=== PATIENT | female | born 1985 ===

== ENCOUNTER 2017-12-10 20:08 | Emergency (ER) | payer MEDICARE, MEDICAID ==
[2017-12-10 20:08] VITALS: BMI 37.9
--- NOTE | 2017-12-10 22:20 | ED PDOC ---
Syncope/Near Syncope/Dizziness Time Seen by Provider: 12/10/17 21:00 Chief Complaint (Nursing): Headache Chief Complaint (Provider): dizziness History Per: Patient History/Exam Limitations: no limitations Onset/Duration Of Symptoms: Days (x2) Current Symptoms Are (Timing): Still Present Additional Complaint(s): 32 year old, female with medical history of hypertension, end-stage renal disease and Lupus disease, presents to the emergency department with a complaint of dizziness associated with 3 episodes of nonbloody, nonbilious nausea and generalized weakness ongoing for 2 days. Patient reported dialysis treatments on Saturday, Saturday and Fridays. PMD: Saray Du MD Past Medical History Reviewed: Historical Data, Nursing Documentation, Vital Signs Vital Signs: Last Vital Signs Temp 98.6 F 12/10/17 20:32 Pulse 78 12/10/17 20:32 Resp 16 12/10/17 20:32 BP 163/108 H 12/10/17 20:32 Pulse Ox 100 12/10/17 20:32 - Medical History PMH: HTN (on home meds), Pulmonary Embolism (per medical records), Chronic Kidney Disease (secondary to SLE, closely follow by Dr. Robbins), TIA Denies: Alzheimer's Disease, Anemia, Anxiety, Arthritis, Asthma, Atrial Fibrillation, Bipolar Disorder, Bronchitis, Cardia Arrhythmia, CHF, COPD, Crohn' s Disease, Dementia, Depression, Diverticulitis, Emphysema, Fractures, Gastritis , Gall Bladder Disease, HIV, Hypercholesterolemia, Hyperthyroidism, Hypothyroidism, Kidney Stones, Migraine, Mitral Valve Prolapse, Osteoporosis, Pancreatitis, Paranoia, Peripheral Edema, Pneumonia, Post Traumatic Stress Disorder, Rheumatoid Arthritis, Schizophrenia, Sickle Cell Disease, Sexually Transmitted Disease, Sleep Apnea - Surgical History Surgical History: CABG, Carotid Endarterectomy, Coronary Stent, Tonsillectomy Denies: Appendectomy, Cholecystectomy, Pacemaker - Family History Family History: States: Unknown Family Hx, Hypertension - Social History Current smoker - smoking cessation education provided: No Alcohol: None Drugs: Denies - Home Medications Home Medications: Ambulatory Orders Medication Instructions Recorded Metoprolol Succinate 50 mg PO DAILY 06/16/14 Zolpidem Tartrate 5 mg PO HS PRN 06/16/14 predniSONE [predniSONE Tab] 5 mg PO DAILY 06/16/14 Hydroxychloroquine Sulfate 200 mg PO DAILY 10/27/14 [Plaquenil] amLODIPine [Norvasc] 5 mg PO DAILY #30 tab 11/02/14 Omeprazole [Prilosec] 20 mg PO DAILY PRN 07/19/15 Dicyclomine [Bentyl] 20 mg PO Q12 PRN #20 tab 07/19/16 Ondansetron ODT [Zofran ODT] 4 mg PO Q6 PRN #16 odt 07/19/16 Ondansetron ODT [Zofran ODT] 4 mg PO Q8 PRN #12 odt 11/08/16 oxyCODONE/Acetaminophen [Percocet 1 ea PO Q6 PRN #15 tab 11/08/16 5/325 mg Tab] Ondansetron ODT [Zofran ODT] 4 mg PO Q6 PRN #16 odt 12/11/17 - Allergies Allergies/Adverse Reactions: Allergies Allergy/AdvReac Type Severity Reaction Status Date / Time vancomycin Allergy RASH Verified 12/10/17 20:32 Review of Systems ROS Statement: Except As Marked, All Systems Reviewed And Found Negative Constitutional: Positive for: Weakness Gastrointestinal: Positive for: Nausea (x3 NBNB) Neurological: Positive for: Dizziness Physical Exam - Reviewed Nursing Documentation Reviewed: Yes Vital Signs Reviewed: Yes - Physical Exam Appears: Positive for: Non-toxic, No Acute Distress Head Exam: Positive for: ATRAUMATIC, NORMAL INSPECTION, NORMOCEPHALIC Skin: Positive for: Pallor. Negative for: Normal Color Eye Exam: Positive for: Normal appearance ENT: Positive for: Normal ENT Inspection Neck: Positive for: Normal Cardiovascular/Chest: Positive for: Regular Rate, Rhythm. Negative for: Murmur Respiratory: Positive for: Normal Breath Sounds. Negative for: Decreased Breath Sounds, Wheezing, Respiratory Distress Gastrointestinal/Abdominal: Positive for: Normal Exam, Soft, Other (obese appearance). Negative for: Tenderness Extremity: Positive for: Normal ROM (upper/lower), Other (left arm AV graft in place) Neurologic/Psych: Positive for: Alert, Oriented - Laboratory Results Result Diagrams: 12/10/17 22:10 12/10/17 22:10 - ECG O2 Sat by Pulse Oximetry: 100 (RA) Pulse Ox Interpretation: Normal Medical Decision Making Medical Decision Making: Initial Impression: Nausea, vomiting and weakness in setting of recent dialysis and Lupus Initial Plan: * ABO/RH type * Type and screen * EKG * CMP * Troponin I * CBC * PTT * PT * Zofran inj 4mg IV * Ct Head FINDINGS: Brain: Unremarkable. No hemorrhage. No significant white matter disease. No edema. Ventricles: Unremarkable. No ventriculomegaly. Bones/joints: Unremarkable. No acute fracture. Soft tissues: Unremarkable. Sinuses: Unremarkable as visualized. No acute sinusitis. Mastoid air cells: Unremarkable as visualized. No mastoid effusion. IMPRESSION: No evidence of an acute intracranial abnormality. Patient is discharged home. She will follow up with PMD and attend AM dialysis as scheduled. Diagnosis is headache and dizziness. Scribe Attestation: Documented by Dejah Mendoza, acting as a scribe for Gus Parmar MD. Provider Scribe Attestation: All medical record entries made by the Scribe were at my direction and personally dictated by me. I have reviewed the chart and agree that the record accurately reflects my personal performance of the history, physical exam, medical decision making, and the department course for this patient. I have also personally directed, reviewed, and agree with the discharge instructions and disposition. Disposition - Clinical Impression Clinical Impression: Headache - Patient ED Disposition Is Patient to be Admitted: No - Disposition Disposition: Routine/Home Disposition Time: 01:10 Condition: STABLE Prescriptions: Ondansetron ODT [Zofran ODT] 4 mg PO Q6 PRN #16 odt PRN Reason: Nausea/Vomiting Instructions: Headache, Adult Forms: [facility] (Northern Irish) Print Language: LATVIAN
[2017-12-10 23:01] LABS: BASO % 0.8 % (0.0-2.0); EOS # 0.1 K/uL (0.0-0.7); EOS % 1.3 % (0.0-4.0); HEMOGLOBIN 11.3 g/dL (12.0-16.0); LYMPH # 1.1 K/uL (1.0-4.3); LYMPH % 20.6 % (20.0-40.0); MEAN CELL VOLUME 99.9 fl (81.0-99.0); MEAN CORPUSCULAR HEMOGLOBIN 32.8 pg (27.0-31.0); MEAN CORPUSCULAR HGB CONC 32.9 g/dL (33.0-37.0); MEAN PLATELET VOLUME 11.2 fl (7.2-11.7); MONO # 0.3 K/uL (0.0-0.8); MONO % 6.8 % (0.0-10.0); NEUT # 3.6 K/uL (1.8-7.0); NEUT % 70.5 % (50.0-75.0); RBC 3.43 Mil/uL (3.80-5.20); RED CELL DISTRIBUTION WIDTH 13.5 % (11.5-14.5); WHITE BLOOD COUNT 5.1 K/uL (4.8-10.8)
[2017-12-10 23:09] LABS: ALB/GLOB RATIO 1.2 (1.0-2.1); ALBUMIN 4.2 g/dL (3.5-5.0); ALT/SGPT 28 U/L (9-52); AST/SGOT 19 U/L (14-36); BLOOD UREA NITROGEN 33 mg/dl (7-17); CALCIUM 9.7 mg/dL (8.4-10.2); GFR AFRICAN-AMERICAN 9; GFR NON-AFRICAN AMERICAN 8
[2017-12-10 23:15] LABS: PARTIAL THROMBOPLASTIN TIME 24.2 Seconds (25.6-37.1); PROTHROMBIN TIME 10.8 Seconds (9.8-13.1)
--- NOTE | 2017-12-11 01:02 | CT ---
EXAM: CT Head Without Intravenous Contrast CLINICAL HISTORY: 32 years old, female; Pain; Headache TECHNIQUE: Axial computed tomography images of the head/brain without intravenous contrast. All CT scans at this facility use one or more dose reduction techniques, viz.: automated exposure control; ma/kV adjustment per patient size (including targeted exams where dose is matched to indication; i.e. head); or iterative reconstruction technique. Coronal and sagittal reformatted images were created and reviewed. COMPARISON: CT HEAD OR BRAIN W/O CONT 2012-11-09 09:07 FINDINGS: Brain: Unremarkable. No hemorrhage. No significant white matter disease. No edema. Ventricles: Unremarkable. No ventriculomegaly. Bones/joints: Unremarkable. No acute fracture. Soft tissues: Unremarkable. Sinuses: Unremarkable as visualized. No acute sinusitis. Mastoid air cells: Unremarkable as visualized. No mastoid effusion. IMPRESSION: No evidence of an acute intracranial abnormality.
[2017-12-11 02:09] VITALS: RESP 17
[2017-12-11 02:13] VITALS: BP 143/85; PULSE 76; TEMP 98
[2017-12-11 02:16] VITALS: O2SAT 100
--- NOTE | 2017-12-11 11:43 | CARD ---
APPROVED REPORT EKG Measurement Heart [id number] <Conclusion> Normal sinus rhythm Prolonged QT Abnormal ECG
== END 2017-12-11 02:00 | disposition home or self-care (01) ==
LOC: H.ER 20:08
DX: R55 Syncope and collapse (principal); R11.0 Nausea; R51 Headache; R42 Dizziness and giddiness; I12.9 Hypertensive chronic kidney disease with stage 1 through stage 4 chronic kidney disease, or unspecified chronic kidney disease; M32.9 Systemic lupus erythematosus, unspecified; N18.9 Chronic kidney disease, unspecified; Z86.711 Personal history of pulmonary embolism; Z86.73 Personal history of transient ischemic attack (TIA), and cerebral infarction without residual deficits; Z95.5 Presence of coronary angioplasty implant and graft; Z95.1 Presence of aortocoronary bypass graft; Z99.2 Dependence on renal dialysis
CPT/HCPCS: 70450; 80053; 84484; 84703; 85025; 85610; 85730; 86850; 86900; 93005; 96374; 99285; J2405

== ENCOUNTER 2018-05-11 02:16 | Emergency (ER) | payer MEDICARE, MEDICAID ==
[2018-05-11 03:40] VITALS: BMI 34.0
--- NOTE | 2018-05-11 03:51 | ED PDOC ---
Upper Extremity Pain/Injury Chief Complaint (Provider): Right upper back/rib pain History Per: Patient History/Exam Limitations: no limitations Onset/Duration Of Symptoms: Days Current Symptoms Are (Timing): Still Present Pain Scale Rating Of: 8 Additional Complaint(s): 32 y/o F with h/o SLE, ESRD on Dialysis 3 times per week ( MWF), HTN presents to ED complaining of right upper back/ribs pain for 3 days. States her pain started 3 days ago in her upper back, moving down to her shoulder, and right rib cage, sharp quality, gradually increasing in intensity, not getting relief with Ibuprofen 600 mg taken 3 hours ago, worse with deep inspiration, and sometimes feels is difficult to take a deep breath when lying down. Reports she has had cold like symptoms including nasal congestion, dry cough 1 week ago, however her symptoms are getting better, but she is still coughing. Denies fever , sputum production, cp, SOB, abd pain, diarrheas. Denies h/o trauma or falls in the past or recently. PMD:Saray Du <Alethea Diaz - Last Filed: 05/11/18 06:01> <Niesha Quiñones - Last Filed: 05/11/18 19:14> Time Seen by Provider: 05/11/18 03:05 Supervising Attending Note - Supervising Attending Note The Documented history was done by the: [employer], Attending Physician The documented physical exam was done by the: [employer], Attending Physician The documented procedures were done by the: [employer], Attending Physician - Attestation: I have personally seen and examined this patient.: Yes I have fully participated in the care of the patient.: Yes I have reviewed all pertinent clinical information: Yes <Niesha Quiñones - Last Filed: 05/11/18 19:14> Past Medical History - Medical History PMH: HTN (on home meds), Pulmonary Embolism (per medical records), End Stage Renal Disease Denies: Alzheimer's Disease, Anemia, Anxiety, Arthritis, Asthma, Atrial Fibrillation, Bipolar Disorder, Bronchitis, Cardia Arrhythmia, CHF, COPD, Crohn' s Disease, Dementia, Depression, Diverticulitis, Emphysema, Fractures, Gastritis , Gall Bladder Disease, HIV, Hypercholesterolemia, Hyperthyroidism, Hypothyroidism, Kidney Stones, Migraine, Mitral Valve Prolapse, Osteoporosis, Pancreatitis, Paranoia, Peripheral Edema, Pneumonia, Post Traumatic Stress Disorder, Rheumatoid Arthritis, Schizophrenia, Sickle Cell Disease, Sexually Transmitted Disease, Sleep Apnea Other PMH: SLE, On dialysis MWF - Surgical History Surgical History: Tonsillectomy Denies: Appendectomy, Cholecystectomy, Pacemaker - Family History Family History: States: Unknown Family Hx, Hypertension <Alethea Diaz - Last Filed: 05/11/18 06:01> Vital Signs: Last Vital Signs Temp 98.5 F 05/11/18 06:12 Pulse 76 05/11/18 06:12 Resp 16 05/11/18 06:12 BP 139/78 05/11/18 06:12 Pulse Ox 99 05/11/18 06:12 <Niesha Quiñones - Last Filed: 05/11/18 19:14> - Home Medications Home Medications: Ambulatory Orders Medication Instructions Recorded Metoprolol Succinate 50 mg PO DAILY 06/16/14 Zolpidem Tartrate 5 mg PO HS PRN 06/16/14 predniSONE [predniSONE Tab] 5 mg PO DAILY 06/16/14 Hydroxychloroquine Sulfate 200 mg PO DAILY 10/27/14 [Plaquenil] amLODIPine [Norvasc] 5 mg PO DAILY #30 tab 11/02/14 Omeprazole [Prilosec] 20 mg PO DAILY PRN 07/19/15 Dicyclomine [Bentyl] 20 mg PO Q12 PRN #20 tab 07/19/16 Ondansetron ODT [Zofran ODT] 4 mg PO Q6 PRN #16 odt 07/19/16 Ondansetron ODT [Zofran ODT] 4 mg PO Q8 PRN #12 odt 11/08/16 oxyCODONE/Acetaminophen [Percocet 1 ea PO Q6 PRN #15 tab 11/08/16 5/325 mg Tab] Ondansetron ODT [Zofran ODT] 4 mg PO Q6 PRN #16 odt 12/11/17 Cyclobenzaprine [Cyclobenzaprine 10 mg PO TID PRN #15 tab 05/11/18 HCl] Naproxen 500 mg PO BID #20 tab 05/11/18 - Allergies Allergies/Adverse Reactions: Allergies Allergy/AdvReac Type Severity Reaction Status Date / Time vancomycin Allergy RASH Verified 12/10/17 20:32 Review of Systems ROS Statement: Except As Marked, All Systems Reviewed And Found Negative (as per HPI) <Alethea Diaz - Last Filed: 05/11/18 06:01> Physical Exam - Reviewed Nursing Documentation Reviewed: Yes Vital Signs Reviewed: Yes - Physical Exam Appears: Positive for: Non-toxic, No Acute Distress Head Exam: Positive for: ATRAUMATIC, NORMOCEPHALIC Skin: Positive for: Normal Color, Warm, Dry Eye Exam: Positive for: Normal appearance ENT: Positive for: Normal ENT Inspection Neck: Positive for: Supple Cardiovascular/Chest: Positive for: Regular Rate, Rhythm. Negative for: Chest Non Tender, Edema, Friction Rub Respiratory: Positive for: Normal Breath Sounds, Rhonchi. Negative for: Decreased Breath Sounds, Accessory Muscle Use, Crackles, Stridor, Wheezing, Respiratory Distress Gastrointestinal/Abdominal: Positive for: Soft. Negative for: Tenderness, Distended, Guarding, Rebound Back: Positive for: Normal Inspection. Negative for: L CVA Tenderness, R CVA Tenderness Extremity: Negative for: Pedal Edema, Calf Tenderness Neurologic/Psych: Positive for: Alert, Oriented Comments: Tenderness to palpation of right upper back muscles ( trapezius), right arm muscles, right rib cage. <Alethea Diaz - Last Filed: 05/11/18 06:01> Medical Decision Making Medical Decision Making: Right upper back/Ribs pain -seems to be MKS etiology possible 2/2 cough -afebrile -toradol 30 mg IM for pain -flexeril 10 mg PO once -Ribs and CXR -risk for osteoporosis -case discussed with Dr. Quiñones re-evaluation Re-evaluation -Pt feel better, states pain improved from 10 to 2/10 -Ribs and CXR reviewed and discussed with Dr. Quiñones. Read by me : no evidence of gross fracture -stable for DC home and recommended f/u as outpatient with PMD <Alethea Diaz - Last Filed: 05/11/18 06:01> Disposition Discussed With : Niesha Quiñones - Disposition Disposition: Routine/Home Disposition Time: 05:55 <Alethea Diaz Last Filed: 05/11/18 06:01> - Patient ED Disposition Is Patient to be Admitted: No Counseled Patient/Family Regarding: Studies Performed, Diagnosis, Need For Followup <Niesha Quiñones - Last Filed: 05/11/18 19:14> - Clinical Impression Clinical Impression: Right arm pain - Disposition Condition: IMPROVED Additional Instructions: Take your medications as instructed. Follow up with your PCP in 2-3 days. Prescriptions: Cyclobenzaprine [Cyclobenzaprine HCl] 10 mg PO TID PRN #15 tab PRN Reason: Pain, Severe (8-10) Naproxen 500 mg PO BID #20 tab Instructions: Muscle and Bone Pain (DC) Print Language: BERMUDIAN
[2018-05-11 03:54] VITALS: RESP 16; TEMP 98.5
[2018-05-11 06:13] VITALS: BP 139/78; PULSE 76; O2SAT 99
--- NOTE | 2018-05-11 09:48 | RAD ---
Date of service: 05/11/2018 PROCEDURE: Radiographs of the Chest and Right Ribs. HISTORY: ribs pain COMPARISON: Chest radiograph dated 06/14/2016. TECHNIQUE: Frontal radiograph of the chest and multiple oblique radiographs of the right ribs were obtained. FINDINGS: RIGHT RIBS: No fracture or focal lesion visualized. LUNGS: Clear. PLEURA: No pneumothorax or pleural fluid. CARDIOVASCULAR: Normal sized heart. No pulmonary vascular congestion. OTHER FINDINGS: Right upper quadrant surgical clips. IMPRESSION: Unremarkable radiographs of the chest and right ribs. No right rib fracture.
== END 2018-05-11 06:13 | disposition home or self-care (01) ==
LOC: H.ER 02:16
DX: M79.601 Pain in right arm (principal); I12.0 Hypertensive chronic kidney disease with stage 5 chronic kidney disease or end stage renal disease; Z99.2 Dependence on renal dialysis
CPT/HCPCS: 71101; 81025; 96372; 99283; J1885

== ENCOUNTER 2018-05-22 20:01 | Emergency (ER) | payer MEDICARE, MEDICAID ==
[2018-05-22 20:10] VITALS: BMI 36.0
[2018-05-22] MEDS ORDERED: Sodium Chloride 0.9% 500 ML IV STA (20:42)
[2018-05-22 21:16] LABS: BASO # 0.1 K/uL (0.0-0.2); BASO % 0.9 % (0.0-2.0); EOS # 0.2 K/uL (0.0-0.7); EOS % 2.7 % (0.0-4.0); HEMOGLOBIN 13.2 g/dL (12.0-16.0); LYMPH # 1.1 K/uL (1.0-4.3); LYMPH % 19.3 % (20.0-40.0); MEAN CELL VOLUME 97.9 fl (81.0-99.0); MEAN CORPUSCULAR HEMOGLOBIN 33.5 pg (27.0-31.0); MEAN CORPUSCULAR HGB CONC 34.2 g/dL (33.0-37.0); MEAN PLATELET VOLUME 8.8 fl (7.2-11.7); MONO # 0.3 K/uL (0.0-0.8); MONO % 4.7 % (0.0-10.0); NEUT # 4.3 K/uL (1.8-7.0); NEUT % 72.4 % (50.0-75.0); NRBC % 0.1 % (0.0-0.0); RBC 3.96 Mil/uL (3.80-5.20); RED CELL DISTRIBUTION WIDTH 14.7 % (11.5-14.5)
--- NOTE | 2018-05-22 21:17 | ED PDOC ---
HPI: Abdomen Time Seen by Provider: 05/22/18 20:15 Chief Complaint (Nursing): Abdominal Pain History Per: Patient Additional Complaint(s): 32 yo F with h/o lupus, on dialysis M-W-F, had dialysis yesterday, presents c/o nausea, multiple episodes of vomiting and diarrhea, associated with mild epigastric discomfort which started yesterday night. Otherwise: (-) urinary symptoms, (-) recent travel/sick contacts, (-) fever, (-) melena, (-) hematochezia, (-) eat any food that caused her symptoms. Has no history of prior abdominal surgery. PMD Florian Robbins Past Medical History Vital Signs: Last Vital Signs Temp 98.7 F 05/22/18 22:53 Pulse 77 05/22/18 22:53 Resp 15 05/22/18 22:53 BP 130/82 05/22/18 22:53 Pulse Ox 99 05/22/18 22:53 - Medical History PMH: HTN (on home meds), Pulmonary Embolism (per medical records), End Stage Renal Disease, Chronic Kidney Disease (secondary to SLE, closely follow by Dr. Robbins), TIA Denies: Alzheimer's Disease, Anemia, Anxiety, Arthritis, Asthma, Atrial Fibrillation, Bipolar Disorder, Bronchitis, Cardia Arrhythmia, CHF, COPD, Crohn' s Disease, Dementia, Depression, Diverticulitis, Emphysema, Fractures, Gastritis , Gall Bladder Disease, HIV, Hypercholesterolemia, Hyperthyroidism, Hypothyroidism, Kidney Stones, Migraine, Mitral Valve Prolapse, Osteoporosis, Pancreatitis, Paranoia, Peripheral Edema, Pneumonia, Post Traumatic Stress Disorder, Rheumatoid Arthritis, Schizophrenia, Sickle Cell Disease, Sexually Transmitted Disease, Sleep Apnea - Surgical History Surgical History: CABG, Carotid Endarterectomy, Coronary Stent, Tonsillectomy Denies: Appendectomy, Cholecystectomy, Pacemaker - Family History Family History: States: Unknown Family Hx, Hypertension - Home Medications Home Medications: Ambulatory Orders Medication Instructions Recorded Metoprolol Succinate 50 mg PO DAILY 06/16/14 Zolpidem Tartrate 5 mg PO HS PRN 06/16/14 predniSONE [predniSONE Tab] 5 mg PO DAILY 06/16/14 Hydroxychloroquine Sulfate 200 mg PO DAILY 10/27/14 [Plaquenil] amLODIPine [Norvasc] 5 mg PO DAILY #30 tab 11/02/14 Omeprazole [Prilosec] 20 mg PO DAILY PRN 07/19/15 Dicyclomine [Bentyl] 20 mg PO Q12 PRN #20 tab 07/19/16 Ondansetron ODT [Zofran ODT] 4 mg PO Q6 PRN #16 odt 07/19/16 Ondansetron ODT [Zofran ODT] 4 mg PO Q8 PRN #12 odt 11/08/16 oxyCODONE/Acetaminophen [Percocet 1 ea PO Q6 PRN #15 tab 11/08/16 5/325 mg Tab] Ondansetron ODT [Zofran ODT] 4 mg PO Q6 PRN #16 odt 12/11/17 Cyclobenzaprine [Cyclobenzaprine 10 mg PO TID PRN #15 tab 05/11/18 HCl] Naproxen 500 mg PO BID #20 tab 05/11/18 Ondansetron ODT [Zofran ODT] 4 mg PO DAILY PRN #20 odt 05/22/18 - Allergies Allergies/Adverse Reactions: Allergies Allergy/AdvReac Type Severity Reaction Status Date / Time vancomycin Allergy RASH Verified 05/22/18 20:12 Review of Systems Constitutional: Negative for: Fever, Malaise Cardiovascular: Negative for: Chest Pain, Palpitations Respiratory: Negative for: Cough, Shortness of Breath Gastrointestinal: Positive for: Nausea, Vomiting, Abdominal Pain, Diarrhea Genitourinary Female: Negative for: Dysuria, Frequency Musculoskeletal: Negative for: Neck Pain, Back Pain Skin: Negative for: Rash, Lesions Physical Exam - Reviewed Vital Signs Reviewed: Yes - Physical Exam Appears: Positive for: Well, Non-toxic, No Acute Distress Head Exam: Positive for: ATRAUMATIC, NORMAL INSPECTION, NORMOCEPHALIC Skin: Positive for: Normal Color, Warm, DRY Eye Exam: Positive for: EOMI, Normal appearance, PERRL ENT: Positive for: Normal ENT Inspection, Other (mucus membranes dry) Neck: Positive for: Normal, Painless ROM Cardiovascular/Chest: Positive for: Regular Rate, Rhythm. Negative for: Murmur Respiratory: Positive for: Normal Breath Sounds. Negative for: Rales, Rhonchi, Wheezing Gastrointestinal/Abdominal: Positive for: Normal Exam, Soft. Negative for: Tenderness Extremity: Positive for: Normal ROM Neurologic/Psych: Positive for: Alert, laser set up operator II-XII (intact), Oriented. Negative for: Motor/Sensory Deficits - Laboratory Results Result Diagrams: 05/22/18 21:07 05/22/18 21:07 - ECG O2 Sat by Pulse Oximetry: 97 Medical Decision Making Medical Decision Making: Plan : - Labs - IVF NS bolus - Pepcid IV - Zofran IV - Ua - Uhcg On re-evaluation, patient reports improvement of symptoms, denies any abdominal pain, nausea, vomiting or diarrhea while in the ER. On exam, patient remains AAOx3, in no acute distress. Abdomen soft, non-tender. Patient tolerating po fluids. Lab results reviewed : bun/creat is stable, rest of labs wnl. Patient states that she still makes some urine, however she has no urge to urinate at this time and is refusing to have Udip done. Diagnostic results d/w the patient in great detail. Based on history, exam and diagnostic results, plan will be for outpatient follow up. Patient encouraged to go to dialysis as scheduled tomorrow without fail. Patient instructed to follow-up with pmd in 1-2 days without fail. Advised to take medication as prescribed. Return to the emergency room at any time for any new or worsening symptoms. Patient states she fully agrees with and understands discharge instructions. States that she agrees with the plan and disposition. Verbalized and repeated discharge instructions and plan. I have given the patient opportunity to ask any additional questions. Disposition - Clinical Impression Clinical Impression: Abdominal pain, Nausea vomiting and diarrhea - Patient ED Disposition Is Patient to be Admitted: No Counseled Patient/Family Regarding: Studies Performed, Diagnosis, Need For Followup, Rx Given - Disposition Disposition: Routine/Home Disposition Time: 22:15 Condition: IMPROVED Additional Instructions: Anali por dejarnos atenderlo hoy. Te trataron por dolor abdominal, vmitos y diarrea. La atencin mdica de emergencia que recibi hoy se dirigi a los s ntomas agudos de presentacin. Si le prescribieron algn medicamento, por favor llnelo y d herman indicado. Teagan sntomas pueden tardar varios herrera en resolverse. Regrese al Departamento de Emergencia en cualquier momento si los s ntomas empeoran, no mejoran o si surge algn otro problema. Por favor, pngase en contacto con hicks mdico en 2 herrera para bowen nueva evaluaci n y seguimiento. Lleve todos los documentos que recibi al momento del javier junto con los medicamentos a hicks visita de seguimiento. Nuestro tratamiento no puede reemplazar la atencin mdica en curso por parte de un proveedor de atenci n primaria (PCP) fuera del departamento de emergencias. Anali por permitir que el equipo de [employer] sea parte de hicks cuidado hoy. Prescriptions: Ondansetron ODT [Zofran ODT] 4 mg PO DAILY PRN #20 odt PRN Reason: Nausea/Vomiting Instructions: Acute Abdomen (Belly Pain), Adult (DC), Nausea and Vomiting, Adult, Viral Gastroenteritis, Adult (DC) Forms: [employer] ([place]) Print Language: GABONESE
[2018-05-22 21:40] LABS: ALB/GLOB RATIO 1.2 (1.0-2.1); ALBUMIN 4.7 g/dL (3.5-5.0); CALCIUM 8.6 mg/dL (8.4-10.2)
[2018-05-22 22:55] VITALS: BP 130/82; PULSE 77; RESP 15; TEMP 98.7
[2018-05-22 23:48] VITALS: O2SAT 97
== END 2018-05-22 22:54 | disposition home or self-care (01) ==
LOC: H.ER 20:01
DX: R10.9 Unspecified abdominal pain (principal); R11.2 Nausea with vomiting, unspecified; R19.7 Diarrhea, unspecified; I12.0 Hypertensive chronic kidney disease with stage 5 chronic kidney disease or end stage renal disease; M32.9 Systemic lupus erythematosus, unspecified; Z86.711 Personal history of pulmonary embolism; Z86.73 Personal history of transient ischemic attack (TIA), and cerebral infarction without residual deficits; Z95.1 Presence of aortocoronary bypass graft; Z95.5 Presence of coronary angioplasty implant and graft; Z99.2 Dependence on renal dialysis
CPT/HCPCS: 80053; 81025; 83690; 85025; 96374; 96375; 99284; J2405; J7030

== ENCOUNTER 2018-07-31 22:47 | Emergency (ER) | payer MEDICARE, MEDICAID ==
[2018-07-31 22:48] VITALS: BMI 36.0
[2018-07-31] MEDS ORDERED: Sodium Chloride 0.9% 500 ML IV STA (23:20)
--- NOTE | 2018-07-31 23:24 | ED PDOC ---
HPI: General Adult Time Seen by Provider: 07/31/18 23:09 Chief Complaint (Nursing): Lower Extremity Problem/Injury Chief Complaint (Provider): Leg aches History Per: Patient History/Exam Limitations: no limitations Onset/Duration Of Symptoms: Days (2 days) Current Symptoms Are (Timing): Still Present Additional Complaint(s): Pt. with 2 days of legs aches, cough, left ear pain. No chest pain, dyspnea, weakness, abd pain, nausea, vomit, diarrhea. No headaches or dizziness. Gets dialysis M, W, F, due tomorrow and is compliant with it. No diarrhea. Gets chronic leg pains from her lupus and takes prednisone for it. Past Medical History Reviewed: Nursing Documentation, Vital Signs Vital Signs: Last Vital Signs Temp 101.2 F H 07/31/18 23:01 Pulse 100 H 07/31/18 23:01 Resp 18 07/31/18 23:01 BP 146/96 H 07/31/18 23:01 Pulse Ox 98 07/31/18 23:01 - Medical History PMH: HTN (on home meds), End Stage Renal Disease, Chronic Kidney Disease (secondary to SLE, closely follow by Dr. Robbins) Denies: Alzheimer's Disease, Anemia, Anxiety, Arthritis, Asthma, Atrial Fibrillation, Bipolar Disorder, Bronchitis, Cardia Arrhythmia, CHF, COPD, Crohn's Disease, Dementia, Depression, Diverticulitis, Emphysema, Fractures, Gastritis, Gall Bladder Disease, HIV, Hypercholesterolemia, Hyperthyroidism, Hypothyroidism, Kidney Stones, Migraine, Mitral Valve Prolapse, Osteoporosis, Pancreatitis, Paranoia, Peripheral Edema, Pneumonia, Post Traumatic Stress Disorder, Rheumatoid Arthritis, Schizophrenia, Sickle Cell Disease, Sexually Transmitted Disease, Sleep Apnea - Surgical History Surgical History: Denies: Appendectomy, Cholecystectomy, Pacemaker Other surgeries: fistula for dialysis L arm - Family History Family History: States: Unknown Family Hx, Hypertension - Home Medications Home Medications: Ambulatory Orders Medication Instructions Recorded Metoprolol Succinate 50 mg PO DAILY 06/16/14 Zolpidem Tartrate 5 mg PO HS PRN 06/16/14 predniSONE [predniSONE Tab] 5 mg PO DAILY 06/16/14 Hydroxychloroquine Sulfate 200 mg PO DAILY 10/27/14 [Plaquenil] amLODIPine [Norvasc] 5 mg PO DAILY #30 tab 11/02/14 Omeprazole [Prilosec] 20 mg PO DAILY PRN 07/19/15 Dicyclomine [Bentyl] 20 mg PO Q12 PRN #20 tab 07/19/16 Ondansetron ODT [Zofran ODT] 4 mg PO Q6 PRN #16 odt 07/19/16 Ondansetron ODT [Zofran ODT] 4 mg PO Q8 PRN #12 odt 11/08/16 oxyCODONE/Acetaminophen [Percocet 1 ea PO Q6 PRN #15 tab 11/08/16 5/325 mg Tab] Ondansetron ODT [Zofran ODT] 4 mg PO Q6 PRN #16 odt 12/11/17 Cyclobenzaprine [Cyclobenzaprine 10 mg PO TID PRN #15 tab 05/11/18 HCl] Naproxen 500 mg PO BID #20 tab 05/11/18 Ondansetron ODT [Zofran ODT] 4 mg PO DAILY PRN #20 odt 05/22/18 - Allergies Allergies/Adverse Reactions: Allergies Allergy/AdvReac Type Severity Reaction Status Date / Time vancomycin Allergy RASH Verified 05/22/18 20:12 Review of Systems ROS Statement: Except As Marked, All Systems Reviewed And Found Negative ENT: Positive for: Ear Pain Respiratory: Positive for: Cough Musculoskeletal: Positive for: Leg Pain Physical Exam - Reviewed Nursing Documentation Reviewed: Yes Vital Signs Reviewed: Yes - Physical Exam Appears: Positive for: Non-toxic, No Acute Distress Head Exam: Positive for: ATRAUMATIC, NORMAL INSPECTION, NORMOCEPHALIC Skin: Positive for: Normal Color, Warm, DRY Eye Exam: Positive for: EOMI, Normal appearance, PERRL ENT: Positive for: TM Is/Are (L ear with air fluid levels; R with no erythema or air fluid levels) Neck: Positive for: Normal, Painless ROM, Supple Cardiovascular/Chest: Positive for: Regular Rate, Rhythm Respiratory: Positive for: CNT, Normal Breath Sounds Gastrointestinal/Abdominal: Positive for: Normal Exam, Soft. Negative for: Tenderness Back: Positive for: Normal Inspection. Negative for: L CVA Tenderness, R CVA Tenderness Extremity: Positive for: Tenderness (b/l legs diffuse; no calf swelling or erythema). Negative for: Deformity Neurologic/Psych: Positive for: Alert, Oriented - ECG O2 Sat by Pulse Oximetry: 98 Pulse Ox Interpretation: Normal - Progress ED Course And Treament: 0003: Stable. AAOx3. Pain controlled. Dr. Parmar to fu on labs and imaging. Disposition - Clinical Impression Clinical Impression: URI, acute - Patient ED Disposition Is Patient to be Admitted: Transfer of Care - Disposition Disposition: Transfer of Care Disposition Time: 00:03 Condition: STABLE Patient Signed Over To: Gus Parmar
[2018-07-31] MEDS ORDERED: Morphine 4 MG/ML VIAL ONE (23:31)
[2018-07-31] MEDS ORDERED: Morphine 4 MG/ML VIAL IV ONE (23:45)
[2018-08-01] MEDS ORDERED: Morphine 4 MG/ML VIAL IV STA (00:01)
[2018-08-01] MEDS ORDERED: Sodium Chloride 0.9% 250 ML IV STA (00:07)
[2018-08-01 00:16] LABS: BASO % 0.5 % (0.0-2.0); EOS # 0.1 K/uL (0.0-0.7); EOS % 1.6 % (0.0-4.0); LYMPH # 0.9 K/uL (1.0-4.3); MEAN CELL VOLUME 97.8 fl (81.0-99.0); MEAN CORPUSCULAR HEMOGLOBIN 32.9 pg (27.0-31.0); MEAN CORPUSCULAR HGB CONC 33.6 g/dL (33.0-37.0); MEAN PLATELET VOLUME 10.9 fl (7.2-11.7); MONO # 0.9 K/uL (0.0-0.8); MONO % 10.9 % (0.0-10.0); NEUT # 6.2 K/uL (1.8-7.0); NRBC % 0.1 % (0.0-0.0); RBC 3.36 Mil/uL (3.80-5.20); RED CELL DISTRIBUTION WIDTH 14.8 % (11.5-14.5); WHITE BLOOD COUNT 8.2 K/uL (4.8-10.8)
--- NOTE | 2018-08-01 00:16 | ED PDOC ---
- Laboratory Results Result Diagrams: 07/31/18 23:45 07/31/18 23:45 - ECG O2 Sat by Pulse Oximetry: 98 (RA) Pulse Ox Interpretation: Normal Medical Decision Making Medical Decision Makin Patient endorsed by Dr. Patrick pending labs, chest x-ray and reevaluation. 0124 Chest x-ray shows no active disease. Labs reviewed and within normal limits except of mild elevation in potassium, consistent with her chronic renal disease. Patient scheduled dialysis today, reports improvement of symptoms and stable for discharge. Scribe Attestation: Documented by Avelina England, acting as a scribe for Gus Parmar MD. Provider Scribe Attestation: All medical record entries made by the Scribe were at my direction and personally dictated by me. I have reviewed the chart and agree that the record accurately reflects my personal performance of the history, physical exam, medical decision making, and the department course for this patient. I have also personally directed, reviewed, and agree with the discharge instructions and disposition. Disposition - Clinical Impression Clinical Impression: URI, acute - POA Present On Arrival: None - Disposition Disposition: Routine/Home Disposition Time: 01:24 Condition: STABLE Prescriptions: Benzonatate [Tessalon Perle] 100 mg PO TID PRN #15 capsule PRN Reason: Cough Instructions: Viral Upper Respiratory Infection, Adult (DC) Forms: [email or web address] ([place]ian)
[2018-08-01 00:26] LABS: BLOOD UREA NITROGEN 35 mg/dl (7-17); CALCIUM 7.3 mg/dL (8.4-10.2); GFR NON-AFRICAN AMERICAN 8
[2018-08-01 00:28] LABS: ALT/SGPT 24 U/L (9-52); AST/SGOT 24 U/L (14-36)
[2018-08-01 01:59] VITALS: BP 127/76; PULSE 80; RESP 16; TEMP 99
[2018-08-01 03:29] VITALS: O2SAT 98
--- NOTE | 2018-08-01 07:56 | RAD ---
Date of service: 07/31/2018 HISTORY: cough COMPARISON: Right ribs with chest 05/11/2018. FINDINGS: LUNGS: No active pulmonary disease. PLEURA: No significant pleural effusion identified, no pneumothorax apparent. CARDIOVASCULAR: No atherosclerotic calcification present Normal. OSSEOUS STRUCTURES: No significant abnormalities. VISUALIZED UPPER ABDOMEN: Normal. OTHER FINDINGS: None. IMPRESSION: No interval acute cardiopulmonary disease appreciated.
== END 2018-08-01 01:39 | disposition home or self-care (01) ==
LOC: H.ER 22:47
DX: J06.9 Acute upper respiratory infection, unspecified (principal); R25.2 Cramp and spasm
CPT/HCPCS: 71045; 80053; 83735; 84100; 84484; 84703; 85025; 87804; 99284; J2270; J7040